=== PATIENT | female | born 1995 ===

== ENCOUNTER 2023-09-24 00:14 | Emergency (ER) | payer OTHER ==
[~2023-09-24] VITALS: Ht 165.1 cm; Wt 75.8 kg
[~2023-09-24 00:14] MED LIST: CODACEE120 PO
[2023-09-24 00:29] VITALS: BP 144/102
[2023-09-24] MEDS ORDERED: DEPO-TESTO200 MG/18 IM (00:32)
== END 2023-09-24 03:55 | disposition home or self-care (01) ==
LOC: ER 00:14
DX: S61.211A Laceration without foreign body of left index finger without damage to nail, initial encounter (principal); W31.2XXA Contact with powered woodworking and forming machines, initial encounter; Z79.899 Other long term (current) drug therapy
CPT/HCPCS: 73130